=== PATIENT | female | born 1980 | race African-American/Black ===

== ENCOUNTER 2018-07-12 14:33 | Emergency (ER) | payer OTHER ==
[2018-07-12 14:43] VITALS: BP 118/65; PULSE 82; TEMP 97.8; BMI 23.0
--- NOTE | 2018-07-12 15:11 | PDOC ---
History of Present Illness - General Chief Complaint: Cold Symptoms Stated Complaint: ASTHMA / SORE THROAT/ SICK Time Seen by Provider: 07/12/18 14:48 History Source: Patient Exam Limitations: No Limitations - History of Present Illness Timing/Duration: reports: constant, getting worse Severity: reports: moderate Associated Symptoms: reports: cough, nasal congestion, nasal drainage, sore throat Past History - Travel Traveled outside of the country in the last 30 days: No Close contact w/someone who was outside of country & ill: No - Past Medical History Allergies/Adverse Reactions: Allergies Allergy/AdvReac Type Severity Reaction Status Date / Time No Known Allergies Allergy Verified 07/12/18 14:42 Home Medications: Ambulatory Orders Albuterol Sulfate Inhaler - [Ventolin Hfa Inhaler -] 1 - 2 inh PO Q4H 07/12/18 Benzonatate [Tessalon Pearls -] 100 mg PO TID #21 capsule 07/12/18 Asthma: Yes COPD: No - Suicide/Smoking/Psychosocial Hx Smoking History: Never smoked Review of Systems - Review of Systems Able to Perform ROS?: Yes Is the patient limited Irish proficient: Yes Constitutional: Yes: Symptoms Reported, See HPI, Malaise. No: Fever HEENTM: Yes: Symptoms Reported, See HPI, Nose Congestion Respiratory: Yes: See HPI, Cough. No: Wheezing Neurological: Yes: Symptoms reported, See HPI, Headache All Other Systems: Reviewed and Negative *Physical Exam - Vital Signs Last Vital Signs Temp Pulse Resp BP Pulse Ox 97.8 F 82 16 118/65 99 07/12/18 14:42 07/12/18 14:42 07/12/18 14:42 07/12/18 14:42 07/12/18 14:42 - Physical Exam General Appearance: Yes: Nourished, Appropriately Dressed, Mild Distress HEENT: positive: MARVIN, TMs Normal, Pharynx Normal, Nasal Congestion, Rhinorrhea. negative: Normal ENT Inspection, Pharyngeal Erythema (no exudate to the tonsils, + posterior sinus drainage, ), Tonsillar Exudate Neck: positive: Supple. negative: Tender, Lymphadenopathy (R), Lymphadenopathy (L) Respiratory/Chest: positive: Lungs Clear, Normal Breath Sounds. 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 We'll treat for ALLERGIC rhinitis and common cold symptoms. Encouraged to follow-up with family practice group for return to work paperwork completion and possible further treatment. *DC/Admit/Observation/Transfer Diagnosis at time of Disposition: Allergic rhinitis Qualifiers: Allergic rhinitis trigger: unspecified Allergic rhinitis seasonality: unspecified Qualified Code(s): J30.9 - Allergic rhinitis, unspecified - Discharge Dispostion Disposition: HOME Condition at time of disposition: Stable Decision to Admit order: No - Referrals Referrals: ON STAFF,NOT [Primary Care Provider] - - Patient Instructions Printed Discharge Instructions: DI for Common Cold Additional Instructions: Rest, drink lots of fluids: Teas, water, soups Saltwater gargles. Consider humidifier in room at night Steamy showers/seem to face break up mucus Avoid contact with allergens, exposure to pollens, close windows on a windy day Lots of handwashing and good hygiene Continue [id number] medications for symptomatic relief- may use allergic eyedrops for itching I Continue antihistamines daily until pollen season is over; Zyrtec, Claritin, Vanessa during the daytime and Benadryl at nighttime as will make sleepy Tylenol or Motrin for fever and pain Followup with private physician in one to 2 days as needed Consider following up with an cleaning maid/joiners supervisor for skin testing and possible allergy shots Return to emergency department for worsened symptoms, fevers, dehydration - Post Discharge Activity Forms/Work/School Notes: Back to Work
== END 2018-07-12 15:22 | disposition home or self-care (01) ==
LOC: EDSEX 14:33 → JERFT 14:33
DX: J30.9 Allergic rhinitis, unspecified (principal); J45.909 Unspecified asthma, uncomplicated
CPT/HCPCS: 71046-TC-FY; 99281-25

== ENCOUNTER 2018-09-28 15:06 | Emergency (ER) | payer OTHER ==
[2018-09-28 15:15] VITALS: BP 111/59; PULSE 89; TEMP 98.4; BMI 22.4
--- NOTE | 2018-09-28 15:16 | PDOC ---
Rapid Medical Evaluation Chief Complaint: Injury Time Seen by Provider: 09/28/18 15:12 Medical Evaluation: Allergies Allergy/AdvReac Type Severity Reaction Status Date / Time No Known Allergies Allergy Verified 07/12/18 14:42 09/28/18 15:14 I have performed a brief in-person evaluation of this patient. The patient presents with a chief complaint of: RT ankle pain s/p twisting ankle on curbside last night. report increased pain with ambulation Pertinent physical exam findings: mild swelling with moderate TTP over dorsum of right proximal foot I have ordered the following:RT ankle and foot x-ray The patient will proceed to the ED for further evaluation. Discharge Disposition - Diagnosis Acute ankle pain Qualifiers: Laterality: right Qualified Code(s): M25.571 - Pain in right ankle and joints of right foot - Discharge Dispostion Condition at time of disposition: Stable - Referrals - Patient Instructions - Post Discharge Activity
--- NOTE | 2018-09-28 16:58 | PDOC ---
History of Present Illness - General Chief Complaint: Injury Stated Complaint: FALL Time Seen by Provider: 09/28/18 15:12 - History of Present Illness Initial Comments: 09/28/18 16:55 38-year-old female without comorbidities presents for evaluation of right ankle pain after an inversion-type injury which she described Past History - Past Medical History Allergies/Adverse Reactions: Allergies Allergy/AdvReac Type Severity Reaction Status Date / Time No Known Allergies Allergy Verified 07/12/18 14:42 Home Medications: Ambulatory Orders Albuterol Sulfate Inhaler - [Ventolin Hfa Inhaler -] 1 - 2 inh PO Q4H 07/12/18 Benzonatate [Tessalon Pearls -] 100 mg PO TID #21 capsule 07/12/18 Asthma: Yes COPD: No - Immunization History Immunization Up to Date: No - Suicide/Smoking/Psychosocial Hx Smoking History: Never smoked Have you smoked in the past 12 months: No Information on smoking cessation initiated: No Hx Alcohol Use: No Drug/Substance Use Hx: No Review of Systems - Review of Systems Musculoskeletal: Yes: Joint Pain *Physical Exam - Vital Signs Last Vital Signs Temp Pulse Resp BP Pulse Ox 98.4 F 89 18 111/59 L 100 09/28/18 15:13 09/28/18 15:13 09/28/18 15:13 09/28/18 15:13 09/28/18 15:13 - Physical Exam Comments: 09/28/18 16:56 Right ankle skin color and temperature are normal range of motion is full. There is no swelling. No tenderness about the knee proximal fibula or along its distal course. No tenderness about the medial lateral malleolus base of the fifth metatarsal or navicular. Mild tenderness over the ATFL no instability or gross sensory motor deficits neurovascular intact. Medical Decision Making - Medical Decision Making 09/28/18 16:56 wbat with Aircast and crutches for right ankle sprain follow-up with orthopedic *DC/Admit/Observation/Transfer Diagnosis at time of Disposition: Ankle sprain Acute ankle pain Qualifiers: Laterality: right Qualified Code(s): M25.571 - Pain in right ankle and joints of right foot - Discharge Dispostion Disposition: HOME Condition at time of disposition: Stable Decision to Admit order: No - Referrals Referrals: Deshaun Ramos DO [Staff Physician] - - Patient Instructions Printed Discharge Instructions: Ankle Sprain, DI for Ankle Sprain Additional Instructions: Weight-bear as tolerated with the Aircast and crutches Tylenol and Motrin as directed for pain. Return to the emergency room for worsening symptoms. Follow- up with orthopedic surgery without fail in 1-2 days for further evaluation and treatment options. - Post Discharge Activity
== END 2018-09-28 17:02 | disposition home or self-care (01) ==
LOC: JERFT 15:06
PROC: 2W3QX1Z Immobilization of Right Lower Leg using Splint (ICD-10-PCS; principal; 2018-09-28)
DX: S93.401A Sprain of unspecified ligament of right ankle, initial encounter (principal); X50.1XXA Overexertion from prolonged static or awkward postures, initial encounter; Y93.89 Activity, other specified; Y92.480 Sidewalk as the place of occurrence of the external cause; Y99.8 Other external cause status
CPT/HCPCS: 73610-TC-RT-FY; 73630-TC-RT-FY; 99282-25